=== PATIENT | male | born 1970 | race Two or more races ===

== ENCOUNTER 2021-01-12 14:17 | Emergency (ER) | payer OTHER ==
[~2021-01-12] VITALS: Ht 180.3 cm; Wt 100.0 kg
[2021-01-12 14:24] VITALS: BP 101/65
== END 2021-01-12 16:04 | disposition home or self-care (01) ==
LOC: ER 14:19
DX: U07.1 COVID-19 (principal); R05.9 Cough, unspecified; R43.8 Other disturbances of smell and taste; R53.1 Weakness
CPT/HCPCS: 87635; 99283; C9803

== ENCOUNTER 2021-03-05 14:13 | Inpatient (IN) | payer OTHER ==
[~2021-03-05] VITALS: Ht 180.3 cm; Wt 89.5 kg
[2021-03-05 15:41] LABS: BASOPHILS # (AUTO) 0.1 X10'3 (0-0.2); BASOPHILS % (AUTO) 0.7 % (0-1); EOSINOPHILS # (AUTO) 0.3 X10'3 (0-0.9); HEMATOCRIT 40.3 % (42.0-52.0); HEMOGLOBIN 13.8 g/dl (14.0-17.9); LYMPHOCYTES # (AUTO) 1.9 X10'3 (1.1-4.8); LYMPHOCYTES % (AUTO) 19.3 % (21-51); MEAN CORPUSCULAR HEMOGLOBIN 29.6 PG (27.0-31.0); MEAN CORPUSCULAR HGB CONC 34.3 g/dL (33.0-36.5); MEAN CORPUSCULAR VOLUME 86.4 FL (78-98); MEAN PLATELET VOLUME 8.2 FL (7.4-10.4); MONOCYTES # (AUTO) 1.1 X10'3 (0-0.9); MONOCYTES % (AUTO) 11.3 % (2-12); NEUTROPHILS # (AUTO) 6.5 X10'3 (1.8-7.7); NEUTROPHILS % (AUTO) 65.7 % (42-75); PLATELET COUNT 365 X10'3 (140-440); RED BLOOD COUNT 4.66 X10'6 (4.70-6.10); RED CELL DISTRIBUTION WIDTH 13.7 % (11.5-14.5); WHITE BLOOD COUNT 9.8 X10'3 (4.5-11.0)
[2021-03-05 15:59] LABS: ALANINE AMINOTRANSFERASE 12 U/L (12-78); ALBUMIN 2.5 G/DL (3.4-5.0); ALBUMIN/GLOBULIN RATIO 0.5 (1.1-1.5); ALKALINE PHOSPHATASE 89 IU/L (46-116); ANION GAP 7 (8-16); ASPARTATE AMINO TRANSFERASE 8 U/L (10-37); BILIRUBIN,TOTAL 0.4 MG/DL (0.1-1.0); BLOOD UREA NITROGEN 17 MG/DL (7-18); BUN/CREATININE RATIO 17.5 (5.4-32.0); CALCIUM 9.2 MG/DL (8.5-10.1); CHLORIDE 97 MMOL/L (99-107); CREATININE 0.97 MG/DL (0.60-1.10); GLUCOSE 279 MG/DL (70-104); MAGNESIUM 1.9 MG/DL (1.5-2.4); POTASSIUM 3.3 MMOL/L (3.5-5.1); SODIUM 134 MMOL/L (135-145); TOTAL CARBON DIOXIDE 30.3 MMOL/L (24-32); TOTAL PROTEIN 7.4 G/DL (6.4-8.2); eGFR 82 ML/MIN
[2021-03-05] MEDS ORDERED: normal saline 1000ML IV soln IV ONE (18:30)
[2021-03-05] MEDS ORDERED: piperacillin/tazo 3.375gm/50ml 50 ML IV ONE (18:30)
[2021-03-05] MEDS ORDERED: vancomycin/NS 1 GM ADD-VANTAGE 250 ML IV ONE (18:30)
[2021-03-05] MEDS ORDERED: iohexol 300mg/ml 100ml inj. ONE (18:52)
--- NOTE | 2021-03-05 19:30 | NUR ---
PT TO CT
[2021-03-05] MEDS ORDERED: potassium CL 10mEq/100ml bag 100 ML IV PRN (22:00)
[2021-03-05] MEDS ORDERED: magnesium Cl slow-release 64mg tablet PO PRN (22:00)
[2021-03-05] MEDS ORDERED: mag hydrox/Alum hydrox/simeth 30ml oral suspension PO PRN (22:00)
[2021-03-05] MEDS ORDERED: ondansetron/PF 4mg/2ml inj IV PRN (22:00)
[2021-03-05] MEDS ORDERED: magnesium 2GM in 50ml NS 50 ML IV PRN (22:00)
[2021-03-05] MEDS ORDERED: potassium Cl 20 mEq SR tablet PO PRN (22:00)
[2021-03-05] MEDS ORDERED: magnesium 4gm in 100ml NS 100 ML IV PRN (22:00)
[2021-03-05] MEDS ORDERED: magnesium hydroxide 30ml (MOM) UD suspension PO PRN (22:00)
[2021-03-05] MEDS ORDERED: acetaminophen 325mg tablet PO PRN (22:00)
[2021-03-05 22:39] LABS: MAGNESIUM 1.7 MG/DL (1.5-2.4); POTASSIUM 3.2 MMOL/L (3.5-5.1)
[2021-03-05] MEDS ORDERED: NO HOME MEDS (22:41)
[2021-03-05] MEDS: piperacillin/tazo 3.375gm/50ml 50 ML IV SCH (23:52)
[2021-03-06] VITALS (18 sets, daily range): BP systolic 87–131; BP diastolic 57–82
--- NOTE | 2021-03-06 00:30 | NUR ---
Report received from Wade FITZPATRICK.Pt arrived on unit by lynne accompanied by Wade FITZPATRICK and roomed into 360.Pt is AAO.Admission assessment and vital signs completed.Pt is stable and made aware of plan of care.Will continue to monitor.
[2021-03-06] MEDS: potassium Cl 20 mEq SR tablet PO PRN ×2 (01:30→10:03)
[2021-03-06] MEDS: clindamycin 600mg/D5W 50ml 50 ML IV SCH ×4 (01:44→21:54)
[2021-03-06] MEDS: morphine 2 MG/ML inj. syringe IV PRN ×4 (01:44→11:04)
[2021-03-06 06:08] LABS: MAGNESIUM 1.8 MG/DL (1.5-2.4); POTASSIUM 3.4 MMOL/L (3.5-5.1)
--- NOTE | 2021-03-06 06:26 | NUR ---
Handoff report given Florecita FITZPATRICK
[2021-03-06] MEDS: K and/or MAG REPLACEMENT MC SCH ×2 (08:00→20:00)
[2021-03-06] MEDS: docusate sod 100mg capsule PO SCH ×2 (08:00→20:00)
[2021-03-06] MEDS: ringers solution, lacted 1,000 ML IV SCH ×2 (08:29→20:59)
--- NOTE | 2021-03-06 08:44 | NUR ---
Malnutrition consult: Pt admitted w/ a L buttock abscess that began to form about 5 days ago and has already had I&D performed per EMR. Current wt 200kg though not scaled, wt from 1 month ago 100kg also not scaled. Wt this admit likely closer to 200lb. Pt appears well developed and well nourished per ED note, no edema noted. Pt currently NPO this time for surgical intervention of abscess. At this time pt does not meet minimum criteria for malnutrition, will continue to monitor. Addendum: 03/06/21 at [address] Amended: Links added.
--- NOTE | 2021-03-06 09:17 | NUR ---
PAGER ID: [phone] MESSAGE: Denis Sheikh [facility] Pt. new diabetic? A1c 8.4. Do you want hyper/hypoglycemia protocol? Florecita [id number]
[2021-03-06] MEDS ORDERED: dextrose 50%-water 50ml dispensing syringe IV PRN ×2 (09:20)
[2021-03-06] MEDS ORDERED: MESSAGE TO PHARMACY PO ONE (09:20)
[2021-03-06] MEDS ORDERED: dextrose ORAL solution 15 GM/59 ML bottle PO PRN ×2 (09:20)
[2021-03-06] MEDS ORDERED: glucagon, human recombinant 1mg kit SUBCUT PRN (09:20)
[2021-03-06] MEDS ORDERED: insulin Lispro (HumaLOG) vial - multi-dose SQ SCH (09:20)
[2021-03-06 09:54] LABS: BASOPHILS # (AUTO) 0.2 X10'3 (0-0.2); EOSINOPHILS # (AUTO) 0.4 X10'3 (0-0.9); EOSINOPHILS % (AUTO) 4.1 % (0-6); LYMPHOCYTES # (AUTO) 2.9 X10'3 (1.1-4.8); LYMPHOCYTES % (AUTO) 28.8 % (21-51); MEAN CORPUSCULAR HEMOGLOBIN 29.8 PG (27.0-31.0); MEAN CORPUSCULAR HGB CONC 34.5 g/dL (33.0-36.5); MEAN CORPUSCULAR VOLUME 86.2 FL (78-98); MEAN PLATELET VOLUME 8.6 FL (7.4-10.4); MONOCYTES % (AUTO) 9.9 % (2-12); NEUTROPHILS # (AUTO) 5.6 X10'3 (1.8-7.7); NEUTROPHILS % (AUTO) 55.2 % (42-75); PRE OP HEMATOCRIT 35.2 % (42.0-52.0); PRE OP HEMOGLOBIN 12.1 g/dL (14.0-17.9); PRE OP PLATELET COUNT 382 X10'3 (140-440); RED BLOOD COUNT 4.08 X10'6 (4.70-6.10); RED CELL DISTRIBUTION WIDTH 14.2 % (11.5-14.5)
[2021-03-06 10:03] LABS: ALANINE AMINOTRANSFERASE 11 U/L (12-78); ALBUMIN 2.2 G/DL (3.4-5.0); ALBUMIN/GLOBULIN RATIO 0.5 (1.1-1.5); ALKALINE PHOSPHATASE 78 IU/L (46-116); ANION GAP 9 (8-16); ASPARTATE AMINO TRANSFERASE 13 U/L (10-37); BILIRUBIN,TOTAL 0.3 MG/DL (0.1-1.0); BLOOD UREA NITROGEN 13 MG/DL (7-18); BUN/CREATININE RATIO 14.3 (5.4-32.0); CALCIUM 8.6 MG/DL (8.5-10.1); CHLORIDE 100 MMOL/L (99-107); CREATININE 0.91 MG/DL (0.60-1.10); GLUCOSE 214 MG/DL (70-104); SODIUM 137 MMOL/L (135-145); TOTAL CARBON DIOXIDE 28.3 MMOL/L (24-32); TOTAL PROTEIN 6.4 G/DL (6.4-8.2); eGFR 89 ML/MIN
[2021-03-06] MEDS: piperacillin/tazo 3.375gm/50ml 50 ML IV SCH ×2 (10:03→16:18)
[2021-03-06] MEDS ORDERED: famotidine/PF 10 mg/ml inj IV ONE (10:30)
[2021-03-06 11:26] LABS: TOTAL CELLS COUNTED 100
[2021-03-06 11:27] LABS: PLATELET ESTIMATE NORMAL; SCHISTOCYTES FEW
[2021-03-06 11:28] LABS: BURR CELLS FEW
[2021-03-06] MEDS ORDERED: morphine 4 MG/ML inj SYRINge IV PRN (12:20)
[2021-03-06] MEDS ORDERED: fentaNYL/PF 50MCG/1 ML 2ML syringe IV PRN ×2 (12:20)
[2021-03-06] MEDS ORDERED: hydrALAZINE 20mg/ml inj. IV PRN (12:20)
[2021-03-06] MEDS ORDERED: labetalol 20mg/4ml (5mg/ml) syringe IV PRN (12:20)
[2021-03-06] MEDS ORDERED: ringers solution, lacted 1,000 ML IV SCH (12:20)
[2021-03-06] MEDS ORDERED: morphine 2 MG/ML inj. syringe IV PRN (12:20)
[2021-03-06] MEDS ORDERED: ondansetron/PF 4mg/2ml inj IV PRN (12:20)
[2021-03-06] MEDS ORDERED: BUPIVAcaine/PF 2.5 mg/ml (0.25%) 30ml vial ONE (12:59)
--- NOTE | 2021-03-06 13:16 | NUR ---
Pt. taken to OR.
[2021-03-06] MEDS ORDERED: MIDAZolam 1mg/ml 10ml vial ONE (14:02)
[2021-03-06] MEDS ORDERED: fentaNYL/PF 50MCG/1 ML 2ML syringe ONE (14:03)
--- NOTE | 2021-03-06 14:50 | NUR ---
Received from OR via , accompanied by Anesthesiologist and report given by Anesthesiolgist. PATIENT A&OX4, DENIES PAIN , , V/S WNL, CSM INTACT, DRESSING TO RECTUM W/ PACKING W/ NO DRAINAGE . 20G LUE , PATIENT DENIES PAIN. SCD ON
--- NOTE | 2021-03-06 15:10 | NUR ---
DM Consult "New DM DX call to see if MD has discussed w/ pt yet": Pt admit DX perirectal/buttock abscess currently having drainage in OR today per EMR. Pt A1C 8.4% w/ no PMH of DM Glu 193mg/dl down from 279mg/dl on admit starting on glycemic protocol today per EMR. ASHISH d/w RN who reports pt unaware of new DM DX at this time. Pt would benefit from thorough DM diet ed once made aware of new DX by physician prior to discharge. LBM 12/21 w/ moderate stool burden per MD note; currently NPO w/ routine colace ordered per EMR. Will continue to monitor for further nutrition intervention needs post-op. Rec: 1. advance diet as medically indicated to carb controlled post-op 2. monitor for PO trends/ONS needs post-op; consider Rodo ONS BID 3. routine bowel care; LBM 12/ w/ moderate stool prior to surgery per EMR 4. scaled wt this admit; subsequent weekly wts 5. DM ed once appropriate post-op following pt notification of new DM DX by physician prior to discharge; A1C 8.4% and no PMH of DM per EMR Addendum: 03/06/21 at [address] Amended: Links added.
--- NOTE | 2021-03-06 15:30 | NUR ---
PATIENT ORIENTEDX4, DENIES PAIN , , V/S WNL, CSM INTACT, DRESSING TO RECTUM W/ PACKING W/ NO DRAINAGE . 20G LUE , . SCD ON, CALLS TO GIVE REPORT ATTEMPT 3 different TIMES, PATIENT TAKEN TO [facility] WITH ALL BELONGINGS AND BEDSIDE REPORT GIVEN AFTER RN WAS TOLD HER PATIENT WAS HERE SHE WAS SITTING AT NURSES STATION. NO MONITORS IN ROOM. i REQUESTED rn interventional to see if a monitor could be located to hook patient too. i saw 2 not being used in hallway and she said she would do so. patient VERY SLEEPY BUT WAKES UP WHEN I CALL HIS NAME AND KNOWS HE HAD SURGERY AND IS IN HOSPITAL AND HIS NAME. CONTINOUS PULSE OX ORDERED BY DR ZAPATA WHICH I VERBALIZED TO THREAT MONITORING ANALYST.
--- NOTE | 2021-03-06 15:41 | NUR ---
Pt. brought to room. Bedside report given. Pt. placed on post-op VS. HR low in 50s. Hospitalist rounding and is aware. Hospitalist currently at bedside assessing pt.
--- NOTE | 2021-03-06 18:17 | NUR ---
Gave report to Eva FITZPATRICK.
--- NOTE | 2021-03-06 18:30 | NUR ---
Patient in room [facility]. I have received report from Florecita FITZPATRICK and had the opportunity to ask questions and assume patient care.
[2021-03-06] MEDS ORDERED: insulin glargine (Lantus) pen - multi-dose SQ SCH (21:00)
[2021-03-06] MEDS: HYDROcodone/acetaminophen 10/325mg tab PO PRN (22:37)
[2021-03-07] MEDS: piperacillin/tazo 3.375gm/50ml 50 ML IV SCH ×2 (00:42→07:38)
[2021-03-07] MEDS: clindamycin 600mg/D5W 50ml 50 ML IV SCH ×2 (02:34→07:33)
[2021-03-07] MEDS: HYDROcodone/acetaminophen 10/325mg tab PO PRN (03:30)
[2021-03-07 04:00] VITALS: BP 109/65
--- NOTE | 2021-03-07 06:40 | NUR ---
Problems reprioritized. Patient report given, questions answered & plan of care reviewed with Poornima FITZPATRICK.
[2021-03-07 06:43] LABS: MAGNESIUM 1.7 MG/DL (1.5-2.4); POTASSIUM 3.7 MMOL/L (3.5-5.1)
[2021-03-07] MEDS: morphine 2 MG/ML inj. syringe IV PRN (07:33)
[2021-03-07] MEDS: docusate sod 100mg capsule PO SCH (07:33)
[2021-03-07 08:00] VITALS: BP 114/71
[2021-03-07] MEDS: K and/or MAG REPLACEMENT MC SCH (08:00)
[2021-03-07] MEDS ORDERED: CEPH250T PO (10:54)
[2021-03-07] MEDS ORDERED: HYDR-3965 PO (10:54)
--- NOTE | 2021-03-07 11:48 | NUR ---
Pt discharged at 1145. IV removed tip intact no complications. Belongings sent with pt. Pt educated on discharge instructions. Pt discharged in stable condition to home with friend.
== END 2021-03-07 11:46 | disposition home or self-care (01) | DRG 345 ==
LOC: ER 14:14 → SUR 3N 21:59 → UNDOADMIN 21:59
PROVIDERS: ADMIT Internal Medicine; ATTEND Internal Medicine
PROC: BW2G1ZZ Computerized Tomography (CT Scan) of Pelvic Region using Low Osmolar Contrast (ICD-10-PCS; 2021-03-05)
PROC: 0D9P0ZZ Drainage of Rectum, Open Approach (ICD-10-PCS; principal; 2021-03-06 14:01)
DX: K61.1 Rectal abscess (principal); L02.31 Cutaneous abscess of buttock; Z20.822 Contact with and (suspected) exposure to COVID-19; E11.65 Type 2 diabetes mellitus with hyperglycemia
CPT/HCPCS: 96374; 96375; 99285; Z7506; 36415; 71045; 72193; 80053; 82948; 83036; 83605; 83735; 84132; 84145; 85007; 85025; 85730; 87040; 87070; 87075; 87077; 87081; 87186; 87635; 93005; A4618; A6253; A6407; A6449; A7000; C9803; G0378; J1815; J2250; J2270; J2543; J3010; J3370; J3490; J7030; J7120; Q9967